=== PATIENT | male | born 1955 | race Caucasian/White ===

== ENCOUNTER 2020-08-07 09:20 | Inpatient (IN) | payer OTHER ==
--- NOTE | 2020-08-07 09:32 | BHS.RME ---
Substance Use & Tx History - Substance Use History Heroin Substance amount: 5-10 bags Frequency of use: Daily Substance route: Inhalation (ex: sniffing or snorting), Injection (ex: intravenous or skin popping) Date of Last Use: 08/07/20 Xanax Substance amount: 1/2 stick xanax 2 mg Frequency of use: Less than 3 times per week Substance route: Oral Date of Last Use: 07/31/20 Physical/Psych/Mental Status - Behavior General Behavior: Increased activity (restlessness, agitation) Eye Contact: Normal - Cooperativeness Cooperativeness: Cooperative - Thinking Thought Processes: Tight, Logical, Goal Directed - Physical Health Problems Is patient presently having any pain?: No Does patient presently have any injuries (include location): No Does patient currently have a fever: No Is patient : No COWS - Scale Resting Pulse: 0= [place] 80 or Below Sweatin= Chills/Flushing Restless Observation: 1= Difficult to Sit Still Pupil Size: 1= Pupils >than Normal Bone or Joint Aches: 2= Severe Diffuse Aches Runny Nose/ Eye Tearin= Nasal Congestion GI Upset > 30mins: 1= Stomach Cramp Tremor Observation: 1= Tremor [place], Not Seen Yawning Observation: 2= >3x During Session Anxiety or Irritability: 2=Irritable/Anxious Goose Flesh Skin: 0=Smooth Skin COWS Score: 12
[2020-08-07 09:42] VITALS: BMI 31.0
--- NOTE | 2020-08-07 09:42 | HP ---
COWS - Scale Resting Pulse: 0= [place] 80 or Below Sweatin= Chills/Flushing Restless Observation: 1= Difficult to Sit Still Pupil Size: 1= Pupils >than Normal Bone or Joint Aches: 2= Severe Diffuse Aches Runny Nose/ Eye Tearin= Nasal Congestion GI Upset > 30mins: 1= Stomach Cramp Tremor Observation: 1= Tremor [place], Not Seen Yawning Observation: 2= >3x During Session Anxiety or Irritability: 2=Irritable/Anxious Goose Flesh Skin: 0=Smooth Skin COWS Score: 12 CIWA Score - Admission Criteria OASAS Guidelines: Admission for Medically Managed Detox: Requires at least one of the followin. CIWA greater than 12 2. Seizures within the past 24 hours 3. Delirium tremens within the past 24 hours 4. Hallucinations within the past 24 hours 5. Acute intervention needed for co occurring medical disorder 6. Acute intervention needed for co occurring psychiatric disorder 7. Severe withdrawal that cannot be handled at a lower level of care (continued vomiting, continued diarrhea, abnormal vital signs) requiring intravenous medication and/or fluids 8. Admitting History and Physical - Admission Chief Complaint: Mr. Simon is a 64 yo gentleman who presents to [facility] requesting detox admission for opioid use disorder. History of Present Illness: Mr. Simon is a 64 yo gentleman who presents to [facility] requesting detox admission for opioid use disorder. He was last here between April 26 and May 01, 2020. He completed detox at that time. He was referred to [facility], but did not follow up. PMH: DM, HCV untreated PSH: right rotator cuff tear Psych: none Soc: aiden Camacho with room mate Legal: none Substance Use History Heroin Substance amount: 5-10 bags Frequency of use: Daily Substance route: Inhalation (ex: sniffing or snorting), Injection (ex: intravenous or skin popping) Date of Last Use: 08/07/20 First use age 33 y No OD hx No Narcan at home Xanax Substance amount: 1/2 stick xanax 2 mg Frequency of use: Less than 3 times per week Substance route: Oral Date of Last Use: 07/31/20 First use: age 33 yo Nicotine: never History Source: Patient Limitations to Obtaining History: No Limitations - Smoking History Smoking history: Never smoked Have you smoked in the past 12 months: No - Alcohol/Substance Use Hx Alcohol Use: No (DENIES) Admission ROS BHS - HPI Allergies/Adverse Reactions: Allergies Allergy/AdvReac Type Severity Reaction Status Date / Time No Known Allergies Allergy Verified 04/26/20 10:04 Exam Limitations: No Limitations - Ebola screening Have you traveled outside of the country in the last 21 days: No Have you been sick,other than usual withdrawal symptoms: No Do you have a fever: No - Review of Systems Constitutional: No Symptoms Reported EENT: reports: Nose Congestion Respiratory: reports: No Symptoms reported Cardiac: reports: No Symptoms Reported GI: reports: Nausea : reports: No Symptoms Reported Musculoskeletal: reports: Back Pain Integumentary: reports: Other (minor swelling over dorsum right hand injection site) Neuro: reports: No Symptoms reported Endocrine: reports: No Symptoms Reported Hematology: reports: No Symptoms Reported Psychiatric: reports: Anxious Patient History - Patient Medical History Hx Anemia: No Hx Asthma: No Hx Chronic Obstructive Pulmonary Disease (COPD): No Hx Cancer: No Hx Cardiac Disorders: No Hx Congestive Heart Failure: No Hx Hypertension: No Hx Hypercholesterolemia: No Hx Pacemaker: No HX Cerebrovascular Accident: No Hx Seizures: No Hx Dementia: No Hx Diabetes: Yes Hx Gastrointestinal Disorders: No Hx Liver Disease: No Hx Genitourinary Disorders: No Hx Sexually Transmitted Disorders: No Hx Renal Disease (ESRD): No Hx Thyroid Disease: No Hx Human Immunodeficiency Virus (HIV): No (negative 2013) Hx Hepatitis C: Yes (diagnosed 15 yrs ago) Hx Depression: No Hx Suicide Attempt: No Hx Bipolar Disorder: No Hx Schizophrenia: No - Patient Surgical History Past Surgical History: Yes Hx Neurologic Surgery: No Hx Cataract Extraction: No Hx Cardiac Surgery: No Hx Lung Surgery: No Hx Breast Surgery: No Hx Breast Biopsy: No Hx Abdominal Surgery: No Hx Appendectomy: No Hx Cholecystectomy: No Hx Genitourinary Surgery: No Hx Section: No Hx Orthopedic Surgery: Yes (R rotator cuff sx in 2009) Other Surgical History: spiral fx to left ankle. Anesthesia Reaction: No - PPD History Date: 04/28/20 Results: 12 mm - Smoking Cessation Smoking history: Never smoked Have you smoked in the past 12 months: No Cigars Per Day: 0 Hx Chewing Tobacco Use: No Initiated information on smoking cessation: No Admission Physical Exam BHS - Physical General Appearance: Yes: No Apparent Distress, Nourished, Appropriately Dressed HEENTM: Yes: Hearing grossly Normal, Normocephalic, Normal Voice Respiratory: Yes: Lungs Clear, No Respiratory Distress, No Accessory Muscle Use Neck: Yes: Within Normal Limits, Supple Breast: Yes: Breast Exam Deferred Cardiology: Yes: Regular Rhythm, Regular Rate Abdominal: Yes: Normal Bowel Sounds, Non Tender, Flat, Soft Genitourinary: Yes: Other (deferred) Back: Yes: Normal Inspection Musculoskeletal: Yes: Gait Steady Extremities: Yes: Normal Inspection, Non-Tender Neurological: Yes: Alert, Normal Response Integumentary: Yes: Track Bennett (erythema ~1" over dorsum right hand, non tender) - Diagnostic (1) Sedative, hypnotic or anxiolytic use disorder, mild, abuse Current Visit: Yes Status: Acute Comment: 1. Pt reports relatively low dose, infrequent use, will observe clinically 2. Substance use education (2) Opioid dependence with withdrawal Current Visit: No Status: Resolved Comment: 1. Admit detox, Methadone protocol 2. Routine labs 3. EKG (3) T2DM (type 2 diabetes mellitus) Current Visit: No Status: Chronic Comment: 1. glucose monitoring 2. per pt, off Metformin as HgA1c in good range (4) History of positive hepatitis C Current Visit: No Status: Chronic Comment: 1. untreated, rec: follow up with PCP post discharge Cleared for Admission S - Detox or Rehab [facility] Level of Care: Medically Managed Detox Regimen/Protocol: Methadone Breathalyzer - Breathalyzer Breathalyzer: 0 Urine Drug Screen - Test Device Lot number: [id number] Expiration date: 02/22/22 - Control Is test valid?: Yes - Results Drug screen NEGATIVE: No Urine drug screen results: FEN-Fentanyl, MOP-Opiates, MTD-Methadone Inpatient Rehab Admission - Rehab Decision to Admit Inpatient rehab admission?: No
[2020-08-07] MEDS ORDERED: MAGNESIUM CITRATE 300 ML BOTTLE PO PRN (09:56)
[2020-08-07] MEDS ORDERED: BISMUTH SUBSALICYLATE 524 MG/30 ML UD PO PRN (09:56)
[2020-08-07] MEDS ORDERED: IBUPROFEN 400 MG TABLET (FP) PO PRN (09:56)
[2020-08-07] MEDS ORDERED: MENTHOL/PHENOL 1 EACH UD MM PRN (09:56)
[2020-08-07] MEDS ORDERED: ACETAMINOPHEN 325 MG TABLET (FP) PO PRN ×2 (09:56)
[2020-08-07] MEDS ORDERED: cloNIDine HCL 0.1 MG TABLET PO PRN (09:56)
[2020-08-07] MEDS ORDERED: METHOCARBAMOL 500 MG TABLET PO PRN (09:56)
[2020-08-07] MEDS ORDERED: MAG HYDROX/AL HYDROX/SIMETH 30 ML UNIT-DOSE CUP PO PRN (09:56)
[2020-08-07] MEDS ORDERED: MAGNESIUM HYDROX 2400MG/30ML ORAL SUSPENSION 30 ML CUP PO PRN (09:56)
[2020-08-07] MEDS ORDERED: ONDANSETRON *ODT* 4 MG TABLET SL PRN (09:56)
[2020-08-07] MEDS ORDERED: hydrOXYzine PAMOATE 25 MG CAPSULE (FP) PO SCH (10:00)
[2020-08-07] MEDS ORDERED: METHADONE HCL 10 MG TABLET (FOR DETOX USE ONLY) PO ONE (10:15)
[2020-08-07] MEDS: PRENATAL VITAMINS W/ FOLIC ACID TABLET (FP) PO SCH (11:10)
--- NOTE | 2020-08-07 11:45 | EKG ---
Test Reason : Blood Pressure : / mmHG Vent. Rate : 066 BPM Atrial Rate : 066 BPM P-R Int : 168 ms QRS Dur : 084 ms QT Int : 402 ms P-R-T Axes : 068 012 007 degrees QTc Int : 421 ms NORMAL SINUS RHYTHM NORMAL ECG WHEN COMPARED WITH ECG OF 26-APR-2020 09:47, NO SIGNIFICANT CHANGE WAS FOUND Confirmed by CORTEZ NEGRETE MD ([id number]) on 08/07/2020 11:44:50 AM Referred By: ROGERIO Confirmed By:CORTEZ NEGRETE MD
[2020-08-07 14:04] LABS: HEMATOCRIT 38.3 % (35.4-49); MCH 28.5 pg (25.7-33.7); MCHC 33.8 g/dl (32.0-35.9); MEAN CELL VOLUME 84.4 fl (80-96); MEAN PLT VOLUME 7.3 fl (7.5-11.1); PLATELET COUNT 300 K/MM3 (134-434); RBC 4.55 M/mm3 (4.00-5.60); RDW 14.1 % (11.9-15.9); WHITE BLOOD COUNT 5.8 K/mm3 (4.0-10.0)
[2020-08-07 14:10] LABS: ALBUMIN 3.7 g/dl (3.4-5.0); BILIRUBIN,TOTAL 0.4 mg/dL (0.2-1); BLOOD UREA NITROGEN 24.5 mg/dL (7-18); CALCIUM 9.2 mg/dL (8.5-10.1); CREATININE 1.1 mg/dL (0.55-1.3); POTASSIUM 4.1 mmol/L (3.5-5.1); TOT PROT 7.7 g/dl (6.4-8.2)
[2020-08-07] MEDS: MUPIROCIN 2% TOPICAL OINTMENT 22 GM TUBE TP SCH ×2 (15:34→22:08)
[2020-08-07] MEDS: THIAMINE HCL 100 MG TABLET (FP) PO SCH (22:06)
[2020-08-07] MEDS: MELATONIN 5 MG TABLETS PO SCH (22:08)
[2020-08-08] MEDS: hydrOXYzine PAMOATE 25 MG CAPSULE (FP) PO PRN ×2 (06:08→11:04)
[2020-08-08] MEDS ORDERED: METHADONE HCL 5 MG TABLET (FOR DETOX USE ONLY) ONE (09:01)
[2020-08-08] MEDS ORDERED: METHADONE HCL 10 MG TABLET (FOR DETOX USE ONLY) ONE (09:02)
[2020-08-08] MEDS ORDERED: METHADONE (DETOX) 20 MG, METHADONE (DETOX) 5 MG PO ONE (10:00)
--- NOTE | 2020-08-08 10:09 | PN ---
BHS COWS - Scale Resting Pulse: 0= [place] 80 or Below Sweatin= Chills/Flushing Restless Observation: 1= Difficult to Sit Still Pupil Size: 0= Normal to Room Light Bone or Joint Aches: 2= Severe Diffuse Aches Runny Nose/ Eye Tearin= Runny Nose/Eyes GI Upset > 30mins: 0= None Tremor Observation of Outstretched Hands: 1= Tremor [place], Not Seen Yawning Observation: 2= >3x During Session Anxiety or Irritability: 2=Irritable/Anxious Goose Flesh Skin: 0=Smooth Skin COWS Score: 11 BHS Progress Note (SOAP) Subjective: sweats shakes interrupted sleep agitation anxiety body aches Objective: 08/08/20 10:10 Vital Signs Temperature 97.8 F 08/08/20 08:45 Pulse Rate 64 08/08/20 08:45 Respiratory Rate 19 08/08/20 08:45 Blood Pressure 119/68 08/08/20 08:45 O2 Sat by Pulse Oximetry (%) 96 08/08/20 08:45 Laboratory Tests 08/07/20 08/07/20 08/07/20 10:34 10:50 10:50 WBC 5.8 RBC 4.55 Hgb 13.0 Hct 38.3 MCV 84.4 MCH 28.5 MCHC 33.8 RDW 14.1 Plt Count 300 D MPV 7.3 L Sodium 138 Potassium 4.1 Chloride 103 Carbon Dioxide 26 Anion Gap 8 BUN 24.5 H Creatinine 1.1 Est GFR (CKD-EPI)AfAm 80.65 Est GFR (CKD-EPI)NonAf 69.58 POC Glucometer 119 Random Glucose 121 H Calcium 9.2 Total Bilirubin 0.4 AST 20 ALT 24 Alkaline Phosphatase 74 Total Protein 7.7 Albumin 3.7 Syphilis Serology COVID-19 ([facility]) 08/07/20 08/07/20 10:50 10:50 WBC RBC Hgb Hct MCV MCH MCHC RDW Plt Count MPV Sodium Potassium Chloride Carbon Dioxide Anion Gap BUN Creatinine Est GFR (CKD-EPI)AfAm Est GFR (CKD-EPI)NonAf POC Glucometer Random Glucose Calcium Total Bilirubin AST ALT Alkaline Phosphatase Total Protein Albumin Syphilis Serology Non-reactive COVID-19 ([facility]) Not detected labs noted BUN elevated 24.5 encourage fluid intake repeat labs aaox3 lying in bed no acute distress Assessment: 08/08/20 10:11 withdrawals Plan: continue detox increase fluids valium 10mg prn
[2020-08-08] MEDS: diazePAM 5 MG TABLET PO PRN ×2 (11:05→23:02)
[2020-08-08] MEDS: MUPIROCIN 2% TOPICAL OINTMENT 22 GM TUBE TP SCH ×2 (11:05→23:03)
[2020-08-08] MEDS: PRENATAL VITAMINS W/ FOLIC ACID TABLET (FP) PO SCH (11:05)
[2020-08-08] MEDS: MELATONIN 5 MG TABLETS PO SCH (23:02)
[2020-08-08] MEDS: THIAMINE HCL 100 MG TABLET (FP) PO SCH (23:02)
[2020-08-09] MEDS ORDERED: METHADONE HCL 10 MG TABLET (FOR DETOX USE ONLY) PO ONE (10:00)
[2020-08-09] MEDS: PRENATAL VITAMINS W/ FOLIC ACID TABLET (FP) PO SCH (10:29)
[2020-08-09] MEDS: MUPIROCIN 2% TOPICAL OINTMENT 22 GM TUBE TP SCH ×2 (10:29→22:50)
[2020-08-09] MEDS: diazePAM 5 MG TABLET PO PRN ×3 (10:32→22:49)
--- NOTE | 2020-08-09 11:11 | PN ---
BHS COWS - Scale Resting Pulse: 0= [place] 80 or Below Sweatin= Chills/Flushing Restless Observation: 1= Difficult to Sit Still Pupil Size: 0= Normal to Room Light Bone or Joint Aches: 1= Mild Discomfort Runny Nose/ Eye Tearin= Runny Nose/Eyes GI Upset > 30mins: 0= None Tremor Observation of Outstretched Hands: 1= Tremor [place], Not Seen Yawning Observation: 1= 1-2x During Session Anxiety or Irritability: 2=Irritable/Anxious Goose Flesh Skin: 0=Smooth Skin COWS Score: 9 BHS Progress Note (SOAP) Subjective: sweats shakes interrupted sleep Objective: 08/09/20 11:09 Vital Signs Temperature 97.5 F L 08/09/20 05:31 Pulse Rate 51 L 08/09/20 05:31 Respiratory Rate 18 08/09/20 05:31 Blood Pressure 109/65 08/09/20 05:31 O2 Sat by Pulse Oximetry (%) 96 08/09/20 05:31 Laboratory Tests 08/07/20 08/07/20 08/07/20 10:34 10:50 10:50 WBC 5.8 RBC 4.55 Hgb 13.0 Hct 38.3 MCV 84.4 MCH 28.5 MCHC 33.8 RDW 14.1 Plt Count 300 D MPV 7.3 L Sodium 138 Potassium 4.1 Chloride 103 Carbon Dioxide 26 Anion Gap 8 BUN 24.5 H Creatinine 1.1 Est GFR (CKD-EPI)AfAm 80.65 Est GFR (CKD-EPI)NonAf 69.58 POC Glucometer 119 Random Glucose 121 H Calcium 9.2 Total Bilirubin 0.4 AST 20 ALT 24 Alkaline Phosphatase 74 Total Protein 7.7 Albumin 3.7 Syphilis Serology COVID-19 ([facility]) 08/07/20 08/07/20 08/08/20 10:50 10:50 16:50 WBC RBC Hgb Hct MCV MCH MCHC RDW Plt Count MPV Sodium Potassium Chloride Carbon Dioxide Anion Gap BUN Creatinine Est GFR (CKD-EPI)AfAm Est GFR (CKD-EPI)NonAf POC Glucometer 95 Random Glucose Calcium Total Bilirubin AST ALT Alkaline Phosphatase Total Protein Albumin Syphilis Serology Non-reactive COVID-19 ([facility]) Not detected aaox3 ambulating no acute distress Assessment: 08/09/20 11:10 withdrawals Plan: continue detox increase fluids
[2020-08-09] MEDS: hydrOXYzine PAMOATE 25 MG CAPSULE (FP) PO PRN ×2 (18:28→22:49)
[2020-08-09] MEDS: THIAMINE HCL 100 MG TABLET (FP) PO SCH (22:49)
[2020-08-09] MEDS: MELATONIN 5 MG TABLETS PO SCH (22:50)
[2020-08-10] MEDS ORDERED: METHADONE HCL 10 MG TABLET (FOR DETOX USE ONLY) ONE (09:10)
[2020-08-10] MEDS ORDERED: METHADONE HCL 5 MG TABLET (FOR DETOX USE ONLY) ONE (09:10)
[2020-08-10] MEDS: PRENATAL VITAMINS W/ FOLIC ACID TABLET (FP) PO SCH (09:55)
[2020-08-10] MEDS: MUPIROCIN 2% TOPICAL OINTMENT 22 GM TUBE TP SCH ×2 (09:55→23:22)
[2020-08-10] MEDS: diazePAM 5 MG TABLET PO PRN ×2 (09:56→23:48)
[2020-08-10] MEDS ORDERED: METHADONE (DETOX) 10 MG, METHADONE (DETOX) 5 MG PO ONE (10:00)
--- NOTE | 2020-08-10 13:17 | PN ---
BHS COWS - Scale Resting Pulse: 0= [place] 80 or Below Sweatin= Chills/Flushing Restless Observation: 1= Difficult to Sit Still Pupil Size: 0= Normal to Room Light Bone or Joint Aches: 1= Mild Discomfort Runny Nose/ Eye Tearin= Nasal Congestion GI Upset > 30mins: 0= None Tremor Observation of Outstretched Hands: 0= None Yawning Observation: 1= 1-2x During Session Anxiety or Irritability: 1=Feels Anxious/Irritable Goose Flesh Skin: 0=Smooth Skin COWS Score: 6 BHS Progress Note (SOAP) Subjective: sweats irritable agitation interrupted sleep Objective: 08/10/20 13:16 Vital Signs Temperature 98.0 F 08/10/20 09:10 Pulse Rate 61 08/10/20 09:10 Respiratory Rate 18 08/10/20 09:10 Blood Pressure 106/54 L 08/10/20 09:10 O2 Sat by Pulse Oximetry (%) 98 08/10/20 09:10 Laboratory Tests 08/07/20 08/07/20 08/07/20 10:34 10:50 10:50 WBC 5.8 RBC 4.55 Hgb 13.0 Hct 38.3 MCV 84.4 MCH 28.5 MCHC 33.8 RDW 14.1 Plt Count 300 D MPV 7.3 L Sodium 138 Potassium 4.1 Chloride 103 Carbon Dioxide 26 Anion Gap 8 BUN 24.5 H Creatinine 1.1 Est GFR (CKD-EPI)AfAm 80.65 Est GFR (CKD-EPI)NonAf 69.58 POC Glucometer 119 Random Glucose 121 H Calcium 9.2 Total Bilirubin 0.4 AST 20 ALT 24 Alkaline Phosphatase 74 Total Protein 7.7 Albumin 3.7 Syphilis Serology COVID-19 ([facility]) 08/07/20 08/07/20 08/08/20 10:50 10:50 16:50 WBC RBC Hgb Hct MCV MCH MCHC RDW Plt Count MPV Sodium Potassium Chloride Carbon Dioxide Anion Gap BUN Creatinine Est GFR (CKD-EPI)AfAm Est GFR (CKD-EPI)NonAf POC Glucometer 95 Random Glucose Calcium Total Bilirubin AST ALT Alkaline Phosphatase Total Protein Albumin Syphilis Serology Non-reactive COVID-19 ([facility]) Not detected labs noted aaox3 ambulating no acute distress Assessment: 08/10/20 13:16 withdrawals Plan: continue detox
[2020-08-10] MEDS: MELATONIN 5 MG TABLETS PO SCH (23:22)
[2020-08-10] MEDS: THIAMINE HCL 100 MG TABLET (FP) PO SCH (23:23)
[2020-08-11] MEDS ORDERED: MASKS NR ONE (08:21)
[2020-08-11] MEDS ORDERED: METHADONE HCL 10 MG TABLET (FOR DETOX USE ONLY) PO ONE (10:00)
[2020-08-11] MEDS: diazePAM 5 MG TABLET PO PRN (10:00)
[2020-08-11] MEDS: MUPIROCIN 2% TOPICAL OINTMENT 22 GM TUBE TP SCH ×2 (10:13→22:33)
[2020-08-11] MEDS: PRENATAL VITAMINS W/ FOLIC ACID TABLET (FP) PO SCH (10:14)
--- NOTE | 2020-08-11 12:25 | PN ---
[facility] CIWA - CIWA Score Nausea/Vomitin-No Nausea/No Vomiting Muscle Tremors: 1-None Visible, but [place] Anxiety: 1-Mildly Anxious Agitation: 0-Normal Activity Paroxysmal Sweats: 1-Minimal Pal[place] Moist Orientation: 0-Oriented Tacttile Disturbances: 0-None Auditory Disturbances: 0-None Visual Disturbances: 0-None Headache: 0-None Present CIWA-Ar Total Score: 3 BHS Progress Note (SOAP) Subjective: anxiety restless Objective: 08/11/20 12:24 Vital Signs Temperature 97.7 F 08/11/20 08:55 Pulse Rate 67 08/11/20 08:55 Respiratory Rate 19 08/11/20 08:55 Blood Pressure 102/69 08/11/20 08:55 O2 Sat by Pulse Oximetry (%) 97 08/11/20 09:29 aaox3 ambulating no acute distress Assessment: 08/11/20 12:25 withdrawals Plan: continue detox d/c in am
[2020-08-11] MEDS: THIAMINE HCL 100 MG TABLET (FP) PO SCH (22:32)
[2020-08-11] MEDS: MELATONIN 5 MG TABLETS PO SCH (22:33)
[2020-08-12] MEDS ORDERED: METHADONE HCL 5 MG TABLET (FOR DETOX USE ONLY) PO ONE (06:00)
[2020-08-12 09:16] VITALS: BP 107/62; PULSE 80; TEMP 97.1
--- NOTE | 2020-08-12 15:39 | DS ---
[facility] Detox Discharge Summary Admission Date: 08/07/20 Discharge Date: 08/12/20 - History Present History: Opioid Dependence, Sedative Dependence Additional Comments: Patient returning home and will return to Outpatient Program at which he was previously enrolled. Patient was Discharged from Detox Unit in stable medical condition. Pertinent Past History: Type II DM, History of Rotator Cuff Tear of Right Shoulder, HCV. - Physical Exam Results Vital Signs: Vital Signs Temperature 97.1 F L 08/12/20 08:22 Pulse Rate 80 08/12/20 08:22 Respiratory Rate 18 08/12/20 08:22 Blood Pressure 107/62 08/12/20 08:22 O2 Sat by Pulse Oximetry (%) 96 08/12/20 05:43 Pertinent Admission Physical Exam Findings: WITHDRAWAL SYMPTOMS. Laboratory Tests 08/07/20 08/07/20 08/07/20 10:34 10:50 10:50 WBC 5.8 RBC 4.55 Hgb 13.0 Hct 38.3 MCV 84.4 MCH 28.5 MCHC 33.8 RDW 14.1 Plt Count 300 D MPV 7.3 L Sodium 138 Potassium 4.1 Chloride 103 Carbon Dioxide 26 Anion Gap 8 BUN 24.5 H Creatinine 1.1 Est GFR (CKD-EPI)AfAm 80.65 Est GFR (CKD-EPI)NonAf 69.58 POC Glucometer 119 Random Glucose 121 H Calcium 9.2 Total Bilirubin 0.4 AST 20 ALT 24 Alkaline Phosphatase 74 Total Protein 7.7 Albumin 3.7 Syphilis Serology COVID-19 ([facility]) 08/07/20 08/07/20 08/08/20 10:50 10:50 16:50 WBC RBC Hgb Hct MCV MCH MCHC RDW Plt Count MPV Sodium Potassium Chloride Carbon Dioxide Anion Gap BUN Creatinine Est GFR (CKD-EPI)AfAm Est GFR (CKD-EPI)NonAf POC Glucometer 95 Random Glucose Calcium Total Bilirubin AST ALT Alkaline Phosphatase Total Protein Albumin Syphilis Serology Non-reactive COVID-19 ([facility]) Not detected 08/12/20 06:04 WBC RBC Hgb Hct MCV MCH MCHC RDW Plt Count MPV Sodium Potassium Chloride Carbon Dioxide Anion Gap BUN Creatinine Est GFR (CKD-EPI)AfAm Est GFR (CKD-EPI)NonAf POC Glucometer 115 Random Glucose Calcium Total Bilirubin AST ALT Alkaline Phosphatase Total Protein Albumin Syphilis Serology COVID-19 ([facility]) Lab Results noted. - Treatment Hospital Course: Detox Protocol Followed, Detoxed Safely, Responded well, Discharged Condition Good Patient has Accepted a Rehab Referral to: Pt. Returning to OP Program at which he was previously enrolled. - Medication Discharge Medications: Ambulatory Orders NK [No Known Home Medication] 08/07/20 - Diagnosis (1) History of positive hepatitis C Status: Chronic (2) T2DM (type 2 diabetes mellitus) Status: Chronic Qualifiers: Diabetes mellitus mcc insulin use: unspecified termite exterminator helper insulin use status Diabetes mellitus complication status: without complication Qualified Code(s): E11.9 - Type 2 diabetes mellitus without complications (3) Sedative, hypnotic or anxiolytic use disorder, mild, abuse Status: Chronic (4) Opioid dependence with withdrawal Status: Acute - AMA Did Patient Leave Against Medical Advice: No
== END 2020-08-12 08:58 | disposition home or self-care (01) | DRG 897 ==
LOC: YASAS 09:20 → Y6N 09:47
PROVIDERS: ADMIT Allergy & Immunology; ATTEND Allergy & Immunology
PROC: HZ2ZZZZ Detoxification Services for Substance Abuse Treatment (ICD-10-PCS; principal; 2020-08-07)
DX: F11.23 Opioid dependence with withdrawal (principal); F13.10 Sedative, hypnotic or anxiolytic abuse, uncomplicated; E11.9 Type 2 diabetes mellitus without complications; Z79.4 Long term (current) use of insulin; B18.2 Chronic viral hepatitis C; Z87.81 Personal history of (healed) traumatic fracture; Z98.890 Other specified postprocedural states; Z86.19 Personal history of other infectious and parasitic diseases
CPT/HCPCS: 36415; 80053; 82962; 85027; 86780; 93005; 93010; U0003

== ENCOUNTER 2021-02-14 11:04 | Inpatient (IN) | payer OTHER ==
[2021-02-14] MEDS ORDERED: MAGNESIUM HYDROX 2400MG/30ML ORAL SUSPENSION 30 ML CUP PO PRN (12:17)
[2021-02-14] MEDS ORDERED: MENTHOL/PHENOL 1 EACH UD MM PRN (12:17)
[2021-02-14] MEDS ORDERED: ONDANSETRON *ODT* 4 MG TABLET SL PRN (12:17)
[2021-02-14] MEDS ORDERED: cloNIDine HCL 0.1 MG TABLET PO PRN (12:17)
[2021-02-14] MEDS ORDERED: MAG HYDROX/AL HYDROX/SIMETH 30 ML UNIT-DOSE CUP PO PRN (12:17)
[2021-02-14] MEDS ORDERED: BISMUTH SUBSALICYLATE 524 MG/30 ML UD PO PRN (12:17)
[2021-02-14] MEDS ORDERED: NICOTINE POLACRILEX 2 MG GUM BUC PRN (12:17)
[2021-02-14] MEDS ORDERED: IBUPROFEN 400 MG TABLET (FP) PO PRN (12:17)
[2021-02-14] MEDS ORDERED: ACETAMINOPHEN 325 MG TABLET (FP) PO PRN ×2 (12:17)
[2021-02-14] MEDS ORDERED: MAGNESIUM CITRATE 300 ML BOTTLE PO PRN (12:17)
[2021-02-14] MEDS ORDERED: METHADONE HCL 10 MG TABLET (FOR DETOX USE ONLY) PO ONE (13:45)
[2021-02-14] MEDS: hydrOXYzine PAMOATE 25 MG CAPSULE (FP) PO SCH ×3 (14:10→22:34)
[2021-02-14] MEDS: PRENATAL VITAMINS W/ FOLIC ACID TABLET (FP) PO SCH (14:10)
[2021-02-14] MEDS: NICOTINE 14 MG/24 HOURS TOPICAL PATCH TD SCH (14:11)
[2021-02-14 14:55] LABS: HEMATOCRIT 46.5 % (35.4-49); HEMOGLOBIN 15.6 GM/dL (11.7-16.9); MCHC 33.6 g/dl (32.0-35.9); MEAN CELL VOLUME 83.3 fl (80-96); MEAN PLT VOLUME 7.7 fl (7.5-11.1); PLATELET COUNT 267 K/MM3 (134-434); RBC 5.58 M/mm3 (4.00-5.60); RDW 13.7 % (11.9-15.9); WHITE BLOOD COUNT 3.8 K/mm3 (4.0-10.0)
[2021-02-14 14:58] LABS: POTASSIUM 3.8 mmol/L (3.5-5.1)
[2021-02-14 15:01] LABS: CALCIUM 9.8 mg/dL (8.5-10.1)
[2021-02-14 15:02] LABS: ALBUMIN 4.1 g/dl (3.4-5.0); BLOOD UREA NITROGEN 29.2 mg/dL (7-18)
[2021-02-14 15:05] LABS: CREATININE 1.5 mg/dL (0.55-1.3)
[2021-02-14 15:07] LABS: BILIRUBIN,TOTAL 0.7 mg/dL (0.2-1); TOT PROT 8.5 g/dl (6.4-8.2)
[2021-02-14] MEDS: MELATONIN 5 MG TABLETS PO SCH (22:34)
[2021-02-14] MEDS: THIAMINE HCL 100 MG TABLET (FP) PO SCH (22:35)
[2021-02-15] MEDS: hydrOXYzine PAMOATE 25 MG CAPSULE (FP) PO SCH ×5 (06:39→22:42)
[2021-02-15] MEDS ORDERED: METHADONE HCL 10 MG TABLET (FOR DETOX USE ONLY) ONE (08:36)
[2021-02-15] MEDS ORDERED: METHADONE HCL 5 MG TABLET (FOR DETOX USE ONLY) ONE (08:36)
[2021-02-15] MEDS: NICOTINE 14 MG/24 HOURS TOPICAL PATCH TD SCH (09:22)
[2021-02-15] MEDS: PRENATAL VITAMINS W/ FOLIC ACID TABLET (FP) PO SCH (09:23)
[2021-02-15] MEDS ORDERED: METHADONE (DETOX) 20 MG, METHADONE (DETOX) 5 MG PO ONE (10:00)
[2021-02-15] MEDS: MELATONIN 5 MG TABLETS PO SCH (22:42)
[2021-02-15] MEDS: METHOCARBAMOL 500 MG TABLET PO PRN (22:42)
[2021-02-15] MEDS: THIAMINE HCL 100 MG TABLET (FP) PO SCH (22:42)
[2021-02-16] MEDS: hydrOXYzine PAMOATE 25 MG CAPSULE (FP) PO SCH ×5 (06:18→22:51)
[2021-02-16] MEDS: NICOTINE 14 MG/24 HOURS TOPICAL PATCH TD SCH (09:15)
[2021-02-16] MEDS: PRENATAL VITAMINS W/ FOLIC ACID TABLET (FP) PO SCH (09:16)
[2021-02-16] MEDS ORDERED: METHADONE HCL 10 MG TABLET (FOR DETOX USE ONLY) PO ONE (10:00)
[2021-02-16] MEDS: THIAMINE HCL 100 MG TABLET (FP) PO SCH (22:51)
[2021-02-16] MEDS: MELATONIN 5 MG TABLETS PO SCH (22:51)
[2021-02-17] MEDS: hydrOXYzine PAMOATE 25 MG CAPSULE (FP) PO SCH ×5 (06:38→23:08)
[2021-02-17 07:08] LABS: SARS-CoV-2 NAA Not Detected (Not Detected)
[2021-02-17] MEDS ORDERED: METHADONE HCL 10 MG TABLET (FOR DETOX USE ONLY) ONE (09:00)
[2021-02-17] MEDS ORDERED: METHADONE HCL 5 MG TABLET (FOR DETOX USE ONLY) ONE (09:00)
[2021-02-17] MEDS ORDERED: METHADONE (DETOX) 10 MG, METHADONE (DETOX) 5 MG PO ONE (10:00)
[2021-02-17] MEDS: PRENATAL VITAMINS W/ FOLIC ACID TABLET (FP) PO SCH (11:03)
[2021-02-17] MEDS: NICOTINE 14 MG/24 HOURS TOPICAL PATCH TD SCH (11:03)
[2021-02-17] MEDS: MELATONIN 5 MG TABLETS PO SCH (23:08)
[2021-02-17] MEDS: THIAMINE HCL 100 MG TABLET (FP) PO SCH (23:08)
[2021-02-18] MEDS: hydrOXYzine PAMOATE 25 MG CAPSULE (FP) PO SCH ×5 (06:55→22:42)
[2021-02-18] MEDS ORDERED: METHADONE HCL 10 MG TABLET (FOR DETOX USE ONLY) PO ONE (10:00)
[2021-02-18] MEDS: NICOTINE 14 MG/24 HOURS TOPICAL PATCH TD SCH (10:38)
[2021-02-18] MEDS: PRENATAL VITAMINS W/ FOLIC ACID TABLET (FP) PO SCH (10:39)
[2021-02-18] MEDS: THIAMINE HCL 100 MG TABLET (FP) PO SCH (22:42)
[2021-02-18] MEDS: METHOCARBAMOL 500 MG TABLET PO PRN (22:42)
[2021-02-18] MEDS: MELATONIN 5 MG TABLETS PO SCH (22:43)
[2021-02-19] MEDS ORDERED: METHADONE HCL 5 MG TABLET (FOR DETOX USE ONLY) PO ONE (06:00)
[2021-02-19] MEDS: hydrOXYzine PAMOATE 25 MG CAPSULE (FP) PO SCH ×2 (06:21→10:00)
[2021-02-19 09:47] VITALS: BP 113/93; TEMP 97.8
[2021-02-19] MEDS: PRENATAL VITAMINS W/ FOLIC ACID TABLET (FP) PO SCH (09:59)
[2021-02-19] MEDS: NICOTINE 14 MG/24 HOURS TOPICAL PATCH TD SCH (09:59)
[2021-02-19 11:58] VITALS: PULSE 94
== END 2021-02-19 10:14 | disposition home or self-care (01) | DRG 896 ==
LOC: YASAS 11:04 → Y6N 13:44
PROVIDERS: ADMIT Allergy & Immunology; ATTEND Allergy & Immunology
PROC: HZ2ZZZZ Detoxification Services for Substance Abuse Treatment (ICD-10-PCS; principal; 2021-02-14)
DX: F11.23 Opioid dependence with withdrawal (principal); U07.1 COVID-19; F17.210 Nicotine dependence, cigarettes, uncomplicated; F19.24 Other psychoactive substance dependence with psychoactive substance-induced mood disorder; B34.2 Coronavirus infection, unspecified; B18.2 Chronic viral hepatitis C
CPT/HCPCS: 36415; 80053; 82962; 85027; 86780; C9803; U0003; U0005

== ENCOUNTER 2021-10-17 15:05 | Inpatient (IN) | payer OTHER ==
[2021-10-17] MEDS ORDERED: ACETAMINOPHEN 325 MG TABLET (FP) PO PRN ×2 (16:18)
[2021-10-17] MEDS ORDERED: MENTHOL/PHENOL 1 EACH UD MM PRN (16:18)
[2021-10-17] MEDS ORDERED: NICOTINE 10 MG CARTRIDGE (INHALER) IH PRN (16:18)
[2021-10-17] MEDS ORDERED: MAG HYDROX/AL HYDROX/SIMETH 30 ML UNIT-DOSE CUP PO PRN (16:18)
[2021-10-17] MEDS ORDERED: IBUPROFEN 400 MG TABLET (FP) PO PRN (16:18)
[2021-10-17] MEDS ORDERED: BISMUTH SUBSALICYLATE 524 MG/30 ML PO PRN (16:18)
[2021-10-17] MEDS ORDERED: cloNIDine HCL 0.1 MG TABLET PO PRN (16:18)
[2021-10-17] MEDS ORDERED: ONDANSETRON *ODT* 4 MG TABLET SL PRN (16:18)
[2021-10-17] MEDS ORDERED: MAGNESIUM CITRATE 300 ML BOTTLE PO PRN (16:18)
[2021-10-17] MEDS ORDERED: methaDONE HCL 10 MG TABLET (FOR DETOX USE ONLY) PO ONE (16:18)
[2021-10-17] MEDS ORDERED: MAGNESIUM HYDROX 2400MG/30ML ORAL SUSPENSION 30 ML CUP PO PRN (16:18)
[2021-10-17] MEDS ORDERED: NALOXONE (NARCAN) HCL 4 MG/0.1 ML SPRAY NS PRN (16:34)
[2021-10-17 17:11] VITALS: BMI 29.6
[2021-10-17] MEDS: hydrOXYzine PAMOATE 25 MG CAPSULE (FP) PO SCH ×2 (18:51→22:29)
[2021-10-17] MEDS: diazePAM 5 MG TABLET PO SCH (22:29)
[2021-10-17] MEDS: METHOCARBAMOL 500 MG TABLET PO PRN (22:29)
[2021-10-17] MEDS: THIAMINE HCL 100 MG TABLET (FP) PO SCH (22:29)
[2021-10-17] MEDS: MELATONIN 5 MG TABLETS PO SCH (22:29)
[2021-10-18] MEDS: diazePAM 5 MG TABLET PO SCH ×4 (06:49→22:04)
[2021-10-18] MEDS: hydrOXYzine PAMOATE 25 MG CAPSULE (FP) PO SCH ×5 (06:49→22:04)
[2021-10-18] MEDS ORDERED: methaDONE HCL 10 MG TABLET (FOR DETOX USE ONLY) ONE (09:38)
[2021-10-18] MEDS: PRENATAL VITAMINS W/ FOLIC ACID TABLET (FP) PO SCH (10:04)
[2021-10-18] MEDS: METHOCARBAMOL 500 MG TABLET PO PRN ×2 (10:05→22:06)
[2021-10-18 15:06] LABS: ALBUMIN 3.4 g/dl (3.4-5.0); BLOOD UREA NITROGEN 29.4 mg/dL (7-18); CALCIUM 9.6 mg/dL (8.5-10.1)
[2021-10-18 15:09] LABS: CREATININE 1.3 mg/dL (0.55-1.3)
[2021-10-18 15:12] LABS: BILIRUBIN,TOTAL 0.6 mg/dL (0.2-1)
[2021-10-18] MEDS: THIAMINE HCL 100 MG TABLET (FP) PO SCH (22:04)
[2021-10-18] MEDS: MELATONIN 5 MG TABLETS PO SCH (22:04)
[2021-10-19] MEDS: hydrOXYzine PAMOATE 25 MG CAPSULE (FP) PO SCH ×5 (05:50→22:07)
[2021-10-19] MEDS: diazePAM 5 MG TABLET PO SCH ×3 (05:50→22:07)
[2021-10-19] MEDS ORDERED: methaDONE HCL 10 MG TABLET (FOR DETOX USE ONLY) PO ONE (10:00)
[2021-10-19 10:26] LABS: BASO % 1.4 % (0-2.0); EOS % 6.6 % (0-4.5); HEMATOCRIT 41.2 % (35.4-49); HEMOGLOBIN 14.1 GM/dL (11.7-16.9); LYMPH % 37.1 % (8-40); MCH 29.7 pg (25.7-33.7); MCHC 34.2 g/dl (32.0-35.9); MEAN CELL VOLUME 86.6 fl (80-96); MEAN PLT VOLUME 7.7 fl (7.5-11.1); MONO % 12.9 % (3.8-10.2); PLATELET COUNT 286 10^3/uL (134-434); RBC 4.75 M/mm3 (4.00-5.60); RDW 14.2 % (11.9-15.9); WHITE BLOOD COUNT 3.8 K/mm3 (4.0-10.0)
[2021-10-19 10:32] LABS: BLOOD UREA NITROGEN 30.2 mg/dL (7-18); CALCIUM 9.4 mg/dL (8.5-10.1)
[2021-10-19 10:36] LABS: CREATININE 1.3 mg/dL (0.55-1.3)
[2021-10-19] MEDS: PRENATAL VITAMINS W/ FOLIC ACID TABLET (FP) PO SCH (10:36)
[2021-10-19] MEDS: diazePAM 5 MG TABLET PO PRN (10:37)
[2021-10-19] MEDS ORDERED: DOCUSATE SODIUM 100 MG CAPSULE (FP) PO PRN (12:44)
[2021-10-19] MEDS: MELATONIN 5 MG TABLETS PO SCH (22:07)
[2021-10-19] MEDS: THIAMINE HCL 100 MG TABLET (FP) PO SCH (22:07)
[2021-10-20] MEDS: hydrOXYzine PAMOATE 25 MG CAPSULE (FP) PO SCH ×5 (06:09→22:11)
[2021-10-20] MEDS: diazePAM 5 MG TABLET PO SCH ×2 (06:09→17:43)
[2021-10-20] MEDS ORDERED: methaDONE HCL 10 MG TABLET (FOR DETOX USE ONLY) ONE (09:54)
[2021-10-20] MEDS: METHOCARBAMOL 500 MG TABLET PO PRN (10:03)
[2021-10-20] MEDS: PRENATAL VITAMINS W/ FOLIC ACID TABLET (FP) PO SCH (10:03)
[2021-10-20] MEDS: diazePAM 5 MG TABLET PO PRN (10:04)
[2021-10-20] MEDS: THIAMINE HCL 100 MG TABLET (FP) PO SCH (22:12)
[2021-10-20] MEDS: MELATONIN 5 MG TABLETS PO SCH (22:12)
[2021-10-21] MEDS ORDERED: diazePAM 5 MG TABLET PO ONE (06:00)
[2021-10-21] MEDS: hydrOXYzine PAMOATE 25 MG CAPSULE (FP) PO SCH ×5 (06:14→22:11)
[2021-10-21] MEDS ORDERED: methaDONE HCL 10 MG TABLET (FOR DETOX USE ONLY) PO ONE (10:00)
[2021-10-21] MEDS: METHOCARBAMOL 500 MG TABLET PO PRN (10:04)
[2021-10-21] MEDS: PRENATAL VITAMINS W/ FOLIC ACID TABLET (FP) PO SCH (10:04)
[2021-10-21] MEDS: MELATONIN 5 MG TABLETS PO SCH (22:11)
[2021-10-21] MEDS: THIAMINE HCL 100 MG TABLET (FP) PO SCH (22:11)
[2021-10-22] MEDS: hydrOXYzine PAMOATE 25 MG CAPSULE (FP) PO SCH (06:01)
[2021-10-22 08:25] VITALS: BP 105/63; PULSE 60; TEMP 99.6
== END 2021-10-22 09:20 | disposition home or self-care (01) | DRG 897 ==
LOC: YASAS 15:05 → Y6N 17:22
PROVIDERS: ADMIT Allergy & Immunology; ATTEND Allergy & Immunology
PROC: HZ2ZZZZ Detoxification Services for Substance Abuse Treatment (ICD-10-PCS; principal; 2021-10-17)
DX: F11.23 Opioid dependence with withdrawal (principal); F13.20 Sedative, hypnotic or anxiolytic dependence, uncomplicated; R73.9 Hyperglycemia, unspecified; R79.89 Other specified abnormal findings of blood chemistry
CPT/HCPCS: 36415; 80048; 80053; 82962; 85025; 86780; C9803; U0003; U0005